=== PATIENT | female | born 1965 | race Caucasian/White ===

== ENCOUNTER 2019-11-24 10:46 | Outpatient (CLI) | payer OTHER ==
--- NOTE | 2019-11-24 14:20 | DEXA Report ---
Reason: FAMILY HX OF OSTEOPOROSIS, POST MENOPAUSAL Procedure Date: 11/24/2019 Accession Number: [id number] / [id number] Procedure: DEX - Dexa Spine and/or Hip CPT Code: Final Report FULL RESULT: PROCEDURE: Dexa Spine and/or Hip INDICATIONS: FAMILY HX OF OSTEOPOROSIS, POST MENOPAUSAL TECHNIQUE: Dual energy x-ray absorptiometry (DXA) was performed on a [employer] System. Regions measured are the AP Spine, femoral neck, and if needed forearm. COMPARISON: None. FINDINGS: Lumbar Spine: Bone Mineral Density 1.104 g/cm/cm,T score 0.6, normal Left Hip: Bone Mineral Density 0.888 g/cm/cm,T score -0.9, normal Left Femoral Neck: Bone Mineral Density 0.881 g/cm/cm, T score -1.1, osteopenia (T score greater or equal to -1.0: NORMAL) (T score from -1.1 to -2.4: OSTEOPENIA) (T score less than or equal to -2.5 to: OSTEOPOROSIS) Impression: Early osteopenia of the left femoral neck. Patients with diagnosis of osteoporosis or osteopenia should have regular bone mineral density assessment. For those eligible for Medicare, routine testing is allowed once every 2 years. Testing frequency can be increased for patients who have rapidly progressing disease or for those who are receiving medical therapy to restore bone mass. Reviewed by: Meera Sutherland MD on 11/24/2019 2:18 PM PDT Approved by: Meera Sutherland MD on 11/24/2019 2:18 PM PDT Station ID: [id number]
== END 2019-11-24 10:47 | disposition home or self-care (01) ==
LOC: DI 10:46
PROVIDERS: ATTEND General Practice
DX: M85.88 Other specified disorders of bone density and structure, other site (principal)
CPT/HCPCS: 77080

== ENCOUNTER 2022-07-30 15:15 | Outpatient (CLI) | payer OTHER ==
--- NOTE | 2022-07-30 17:01 | DEXA Report ---
PROCEDURE: Dexa Spine and/or Hip INDICATIONS: OSTEOPENIA TECHNIQUE: Dual energy x-ray absorptiometry (DXA) was performed on a [employer] System. Regions measur ed are the AP Spine, femoral neck, and if needed forearm. COMPARISON: None. FINDINGS: Lumbar Spine: Bone Mineral Density 1.068 g/cm/cm,T score -0.9, , previously 1.1. This has statistically decrease d. Left Femoral Neck: Bone Mineral Density 0.869 g/cm/cm, T score -1.2. Left Hip: Bone Mineral Density 0.859 g/cm/cm,T score -1.2, previously 0.888. (T score greater or equal to -1.0: NORMAL) (T score from -1.1 to -2.4: OSTEOPENIA) (T score less than or equal to -2.5 to: OSTEOPOROSIS) Impression: Statistically decreased lumbar spine bone mineral density. Bone mineralization is still within normal limits. Patients with diagnosis of osteoporosis or osteopenia should have regular bone mineral density assess ment. For those eligible for Medicare, routine testing is allowed once every 2 years. Testing frequ ency can be increased for patients who have rapidly progressing disease or for those who are receivin g medical therapy to restore bone mass. Reviewed by: Jean Carlos Barcenas on 07/30/2022 4:59 PM BOO Approved by: Jean Carlos Barcenas on 07/30/2022 4:59 PM PST Station ID: [id number]
== END 2022-07-30 15:16 | disposition home or self-care (01) ==
LOC: DI 15:15
PROVIDERS: ATTEND Student in an Organized Health Care Education/Training Program
DX: M85.88 Other specified disorders of bone density and structure, other site (principal)

== ENCOUNTER 2023-11-12 09:20 | Day surgery (SDC) | payer OTHER ==
[2023-11-12] MEDS: LACTATED RINGERS 1,000 ML IV ONE ×2 (09:38→11:21)
--- NOTE | 2023-11-12 10:42 | ANESTHESIA ---
Pre-Anesthesia VS, & Labs - Diagnosis hx of polyps, change in bowel habits - Procedure colonoscopy Vital Signs: Temp Pulse Resp BP Pulse Ox O2 Flow Rate 36.7 C 96 13 131/93 H 98 11/12/23 09:40 11/12/23 09:40 11/12/23 09:40 11/12/23 09:40 11/12/23 09:40 Height: 5 ft 7 in Weight (kg): 76.1 kg Body Mass Index: 26.2 BMI Classification: Overweight - NPO >8 hours - Is Patient ?: No Home Medications and Allergies Home Medications: Ambulatory Orders Calcium Carbonate [Calcium] 600 mg PO DAILY 11/11/23 Magnesium 250 mg PO DAILY 11/11/23 Metoprolol Succinate [Toprol Xl] 25 mg PO ONCE 11/11/23 Multivitamin 1 each PO DAILY 11/11/23 [place]-3/Dha/Epa/Fish Oil [Fish Oil 1,000 mg Softgel] 1 each PO DAILY 11/11/23 Vitamin D3/Folic Acid [Folic D3 94.38 Mcg-1 mg Cap] 1 each PO DAILY 11/11/23 Calcium Carbonate [Calcium] 600 mg PO DAILY 11/11/23 Magnesium 250 mg PO DAILY 11/11/23 Metoprolol Succinate [Toprol Xl] 25 mg PO ONCE 11/11/23 Multivitamin 1 each PO DAILY 11/11/23 Hill[place]-3/Dha/Epa/Fish Oil [Fish Oil 1,000 mg Softgel] 1 each PO DAILY 11/11/23 Vitamin D3/Folic Acid [Folic D3 94.38 Mcg-1 mg Cap] 1 each PO DAILY 11/11/23 Allergies/Adverse Reactions: Allergies Allergy/AdvReac Type Severity Reaction Status Date / Time Penicillins Allergy Rash Verified 11/12/23 09:47 Anes History & Medical History - Anesthetic History Anesthesia Complications: reports: No previous complications Family history of Anesthesia Complications: Denies Family history of Malignant Hyperthermia: Denies - Medical History Cardiovascular: reports: Arrhythmia, Other Pulmonary: reports: None Gastrointestinal: reports: None Urinary: reports: None Musculoskeletal: reports: None Endocrine/Autoimmune: reports: None Skin: reports: None Psychosocial: reports: No issues indicated History of Cancer?: No - Surgical History General: reports: Appendectomy, Colonoscopy Gynecologic: reports: Hysterectomy Exam General: Alert, Oriented x3, Cooperative Dental: WNL Mouth Openin Fingerbreadth Neck Mobility: Normal Mallampati classification: II Thyromental Distance: 4-6 cm Respiratory: Lungs clear Cardiovascular: Regular rate Plan Anesthesia Type: General, Total IV Consent for Procedure(s) Verified and Reviewed: Yes Code Status: Attempt Resuscitation ASA classification: 2-Mild systemic disease Is this case an emergency?: No
[2023-11-12] MEDS ORDERED: LIDOCAINE-MPF 2% 5 ML VIAL ONE (10:51)
[2023-11-12] MEDS ORDERED: PROPOFOL 200 MG/20 ML VIAL IVP ONE ×3 (10:51→11:13)
[2023-11-12] MEDS: SIMETHICONE *(INFANT SUSP)* 40 MG/0.6 ML BOTTLE PO ONE (11:03)
[2023-11-12 11:39] VITALS: BP 109/74; O2SAT 99
--- NOTE | 2023-11-12 12:49 | ANESTHESIA POST OP EVALUATION ---
Anesthesia Post Eval - Post Anesthesia Eval Vitals: Last Vital Signs Temp 8954 C H 11/12/23 11:25 Pulse 79 11/12/23 11:30 Resp 16 11/12/23 11:30 BP 109/74 11/12/23 11:30 Pulse Ox 99 11/12/23 11:30 O2 Flow Rate CV Function Including HR & BP: Stable Pain Control: Satisfactory Nausea & Vomiting: Negative Mental Status: Baseline Respiratory Status: Airway Patent Hydration Status: Satisfactory Anesthesia Complications: None
== END 2023-11-12 09:21 | disposition home or self-care (01) ==
LOC: SDS 09:20
PROVIDERS: ATTEND Surgery
DX: Z12.11 Encounter for screening for malignant neoplasm of colon (principal); Z86.010 Personal history of colon polyps
CPT/HCPCS: 45378; A9270; J7120